=== PATIENT | female | born 1940 | race Caucasian/White ===

== ENCOUNTER → 2017-07-07 12:59 | Outpatient (CLI) | payer MEDICARE, SELFPAY ==
--- NOTE | 2017-07-07 13:02 | BI_ITS ---
MAMMOGRAPHY - BILATERAL SCREENING REASON FOR EXAM: Female, 76 years old. Routine annual screening examination. PERTINENT HISTORY: Personal history of breast cancer. Prior left lumpectomy. Aunt with breast cancer. TECHNIQUE: Digital bilateral breast mariel (3D mammographic acquisition) in the CC and MLO projections. 2-D mediolateral oblique (MLO) and craniocaudad (CC) views of both breasts were obtained. CAD: Full Field Digital Mammography with Computer Added Detection was performed. COMPARISON: Comparison is made with prior study dated June 26, 2016 and February 15, 2015. FINDINGS: Breast Composition: The breasts are almost entirely fatty. There are no dominant masses or suspicious calcifications. Once again, there is evidence of architectural distortion in the deep mid medial aspect of the left breast. This is in keeping with prior lumpectomy. A stereotactic clip is seen at that site as well. Stable 3.8 mm well-defined nodule in the superior retroareolar areolar region of the right breast. No other significant abnormalities are identified. There has been no significant change since the prior study. BI/SCREENING MAMM (CAD), BILAT IMPRESSION: Stable bilateral screening mammogram. Yearly follow-up mammogram recommended. (A) ASSESSMENT CATEGORY: BIRADS Category 2: Benign. A letter regarding these results will be sent to the patient by the facility within 30 days. Approximately 10% of breast cancers are not detected by mammography. A normal mammogram should not delay biopsy of a clinically suspicious abnormality. [id number] Electronically Signed: Amaury Sebastian MD at 15:25 EDT Tel [phone], Service support ,
== END ==
PROVIDERS: Visit Provider Internal Medicine Hematology & Oncology
DX: Z12.31 Encounter for screening mammogram for malignant neoplasm of breast (principal); Z85.6 Personal history of leukemia
CPT/HCPCS: 77063; 77067

== ENCOUNTER → 2017-08-12 17:23 | Outpatient (CLI) | payer MEDICARE, SELFPAY ==
--- NOTE | 2017-08-12 17:25 | CT_ITS ---
STUDY: CT SOFT TISSUE NECK WITH CONTRAST REASON FOR EXAM: Female, 76 years old. Right neck pain and lump. History of CLL and breast cancer. RADIATION DOSAGE (If Supplied By Facility): CTDIvol = ( 17.20 ) mGy, DLP = ( 536.83 ) mGycm TECHNIQUE: The patient was scanned in a multi-detector CT scanner. High resolution transaxial imaging was performed following intravenous administration of 75 ml of Isovue 370 contrast material. Sagittal and coronal images were reconstructed. Individualized dose optimization techniques were used for this CT. COMPARISON: None. FINDINGS: No definite focal mass is seen. Normal bilateral parotid glands. Normal bilateral uniform room attendant spaces. Normal bilateral parapharyngeal spaces. Normal bilateral carotid spaces. Normal bilateral sublingual and submandibular glands and spaces. Normal visualized nasopharynx. Normal retropharyngeal space. Normal perivertebral space. Normal visualized bilateral faucial tonsils. The visualized tongue, tongue base and oropharynx are normal. Mild bilateral posterior cervical time adenopathy right worse than left. There is an elongated 3.7 cm jugulodigastric lymph node on the right which could be the palpable abnormality. There is normal lymph node morphology. There is no demonstrated solid or cystic mass lesion. There is no abnormal contrast enhancement. Normal epiglottis, bilateral vallecula and hypopharynx. The pre-epiglottic and paraglottic adipose spaces are normal. Normal visualized bilateral piriform sinuses, aryepiglottic folds, vocal cords, and arytenoid-cricoid articulations. Normal subglottic trachea. Normal bilateral lobes of the thyroid gland. Abnormal left lung apex where there is a 2 cm indeterminate focal pulmonary density. CT of the chest is recommended. Normal visualized paranasal sinuses. Normal visualized cervical spine. CT/Soft Tissue Neck WITH Contrast IMPRESSION: No definite pathologic neck mass, but mild bilateral cervical adenopathy worse on the right which perhaps causes the palpable abnormality. 2 cm left apical pulmonary density. CT of the chest is recommended. Electronically Signed: Beny Eubanks MD at 11:33 EDT , Service support ,
[2017-08-12 17:35] LABS: CREATININE FINGERSTICK 1.1 mg/dL (0.55-1.02)
== END ==
PROVIDERS: Visit Provider Otolaryngology
DX: M54.2 Cervicalgia (principal)
CPT/HCPCS: 70491; Q9967

== ENCOUNTER → 2017-09-26 09:17 | Outpatient (CLI) | payer MEDICARE, SELFPAY ==
--- NOTE | 2017-09-26 09:19 | US_ITS ---
STUDY: ABDOMINAL ULTRASOUND - RIGHT UPPER QUADRANT REASON FOR VISIT: Female, 76 years old. Right upper quadrant pain . TECHNIQUE: Ultrasound evaluation of the right upper quadrant was performed with real-time and static lima-scale imaging. TECHNICAL QUALITY: Adequate. COMPARISON: None. FINDINGS: Liver: The liver measures 13.6 cm. There is normal echogenicity of the liver. The bile ducts are within normal limits. There is hepatic color flow. The direction of portal flow is hepatopetal. There is a 2 cm x 2.3 cm x 1.7 cm septated cyst in the left lobe of the liver. Gallbladder: Normal distended gallbladder. The gallbladder wall measures 3.0 mm. There is a negative sonographic Ge's sign. There is no pericholecystic fluid. There is a solitary echogenic gallstone within the gallbladder. Common Bile Duct (C.B.D.): The common bile duct measures 4.0 mm. Pancreas: Normal size of the head, body and tail of the pancreas. There is normal echogenicity of the pancreas. There is no demonstrated pancreatic mass or cyst. Right Kidney: Normal size of the right kidney. The right kidney measures 10.1 cm x 4.3 cm x 3.7 cm. Normal renal cortex. The right cortex measures 1.5 cm. There is no demonstrated renal mass or cyst. There is no right hydronephrosis. US/Gallbladder IMPRESSION: Solitary gallstone. Septated cyst in the left lobe of the liver. Electronically Signed: Amaury Sebastian MD at 13:19 EDT Tel [phone], Service support ,
== END ==
PROVIDERS: Visit Provider Surgery
DX: R10.11 Right upper quadrant pain (principal)
CPT/HCPCS: 76705

== ENCOUNTER 2017-10-10 06:20 | Day surgery (SDC) | payer MEDICARE, SELFPAY ==
[2017-10-10] VITALS (8 sets, daily range): BP systolic 98–130; BP diastolic 49–97; PULSE 66–82; RESP 14–16; TEMP 36.4–36.6; O2SAT 93–100; BMI 29.7
--- NOTE | 2017-10-10 | GASB_PTH ---
PATIENT: JOIE SANCHEZ LOC: EN U#:[id number] AGE/SX: 76/F ROOM: RE10/10/[address]: Dr. Bam Greco MD : 1940 BED: DIS: 10/10/2017 SPEC #: [id number] RECD: 10/10/17 13:50 STATUS: LINDA SHEYLA #: [id number] YAKELIN: 10/10/17 00:[address]: Bam Greco DEPT: SURGICAL PATHOLOGY RECD BY: Neal Coley ENTERED: 10/10/17 13:51 SP TYPE: Gastric Bx OTHR DR: No Primary Care Phys Tissues: A - Gastric mucous membrane B - Gastric mucous membrane C - Gastric mucous membrane D - Esophageal mucous membrane Procedures: Special Stain Group II Surgery Specimen Level IV Alcian Blue/PAS (control) HEADER OPERATION: EGD ([facility] [place]) PRE-OP DIAGNOSIS: GERD with esophagitis TISSUE SUBMITTED: A ? Antrum biopsy for H. pylori and path, B ? Gastric polyp biopsy, C ? GE junction biopsy, D ? Mid esophagus biopsy MICROSCOPIC DIAGNOSIS A. Antrum, biopsy: Mild gastritis. See microscopic description and comment. B. Gastric polyp, biopsy: Fundic gland polyp. C. GE junction, biopsy: Fragments of gastroesophageal mucosa with chronic inflammation. 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 See comment. D. Mid esophagus, biopsy: Fragment of squamous epithelium, no pathologic diagnosis. SJ:eladio 10/13/17 COMMENT A. The results of immunohistochemistry for Helicobacter pylori will be reported separately ([id number]). C. Alcian blue/PAS stain with matched control is used in the evaluation of the specimen. This case has been reviewed in consultation with Dr. Pierre who concurs with the above diagnosis. MICROSCOPIC DESCRIPTION Slides are reviewed. A. The specimen shows fragments of gastric mucosa with chronic inflammatory cell infiltrates in the lamina propria consisting of lymphocytes and plasma cells, consistent with mild chronic gastritis. GROSS DESCRIPTION A - Received in fixative is one container labeled with the patient's name and designated antrum biopsy for H. pylori and path. The specimen consists of one irregular fragment of light perdue soft tissue that measures 0.3 x 0.3 x 0.1 cm. The specimen is totally submitted in one cassette. B - Received in fixative is one container labeled with the patient's name and designated gastric polyp biopsy. The specimen consists of multiple irregular fragments of light perdue soft tissue that in aggregate measure 0.4 x 0.1 x 0.1 cm. The specimen is totally submitted in one cassette. C - Received in fixative is one container labeled with the patient's name and designated GE junction biopsy. The specimen consists of multiple irregular fragments of light perdue soft tissue that in aggregate measure 2 x 0.3 x 0.1 cm. The specimen is totally submitted in one cassette. D - Received in fixative is one container labeled with the patient's name and designated mid esophagus biopsy. The specimen consists of one irregular fragment of light perdue soft tissue that measures 0.5 x 0.2 x 0.1 cm. The specimen is totally submitted in one cassette. / SJ:rg 10/10/17 TC:3 CPT: 58624 x4, 38169
--- NOTE | 2017-10-10 | IMM_PTH ---
PATIENT: JOIE SANCHEZ LOC: EN U#:[id number] AGE/SX: 76/F ROOM: RE10/10/[address]: Dr. Bam Greco MD : 1940 BED: DIS: 10/10/2017 SPEC #: [id number] RECD: 10/13/17 11:52 STATUS: LINDA SHEYLA #: [id number] YAKELIN: 10/10/17 00:[address]: Bam Greco DEPT: IMMUNOHISTOCHEMISTRY RECD BY: Marialuisa Tobias ENTERED: 10/13/17 11:53 SP TYPE: IMMUNO OT DR: No Primary Care Phys Tissues: Gastric mucous membrane Procedures: H Pylori (initial) PHYSICIAN & INSTITUTION [place] [address] SPECIMEN INFORMATION: Tissue Source: A - Antrum biopsy Clinical Info: GERD with esophagitis Specimen Number: [id number] CPT code: 05656 METHODOLOGY: Deparaffinized sections of prefer/formalin-fixed tissue or PAP/DQ stained slides are incubated with monoclonal/polyclonal antibodies/oligonucleotide probes. Localization is made via biotin free immunoperoxidase method. Appropriate controls are performed and reacted as expected. Results on target cell population are indicated in the following table: RESULTS: ANTIBODY / CLONE RESULT H Pylori (polyclonal) negative These tests were developed and their performance characteristics determined by [facility]. They may not have been cleared or approved by the U.S. Food and Drug Administration. The FDA has determined that such clearance or approval is not necessary. INTERPRETATION: A. Antrum biopsy: Negative for Helicobacter pylori organisms. SJ:eladio 10/14/17
--- NOTE | 2017-10-10 08:01 | PCM.OPRPT ---
Problem List (1) GERD with esophagitis Status: Acute Report of Operation Date of Procedure: 10/10/17 Pre-Operative Diagnosis: Severe reflux esophagitis/GERD Post-Operative Diagnosis: Mild antral gastritis. Gastric fundic polyps. Hiatal hernia with reflux esophagitis and Schatzki ring Surgery/Procedure Performed:: Esophagogastroduodenoscopy with cold forcep biopsies Description of Surgical Findings:: Timeout informed consent was obtained. 76-year-old female was taken to the endoscopy suite. Her oropharynx anesthetized with Topex. She was placed in a left lateral decubitus position. She underwent monitored anesthesia care. Flexible gastroscope was inserted into the esophageal inlet. The proximal mid esophagus did not appear to be remarkable. The EG junction was at 38 cm. A 4 cm hiatal hernia noted. A Schatzki ring noted. Some mild erythema consistent with reflux. The scope stomach. Some mild erythema of the antrum noted. The scope was advanced through the pylorus. The first and second portions of the duodenum were inspected this was not remarkable. The scope was withdrawn back into the stomach and the antrum inspected. The mild erythema was sampled with cold forceps. The scope was retroflexed the hiatal hernia was noted the cardia was not remarkable. Upon straight on imaging there is evidence of gastric fundic polyps. No active bleeding. A cold forcep biopsy of 1 of the gastric fundic polyps was performed. Hemostasis was intact. The scope was withdrawn to the e.g. junction. Several biopsies were obtained of the esophageal ring and at the e.g. junction. Hemostasis again intact. The scope was withdrawn to the mid esophagus and mid esophageal biopsy was obtained. Excess fluid and air was aspirated free. The procedure was completed with the patient tolerating it well. Impression Antral erythema. Gastric fundic polyps. Moderate hiatal hernia with Schatzki ring and findings of reflux esophagitis. Pathology is pending She has undergone previous testing. She is a candidate for a surgical reflux procedure. In addition she has known gallstones. Patient will be offered consideration of a laparoscopic Joseph fundoplication with repair of her hiatal hernia in combination with a laparoscopic cholecystectomy. Scope was inserted 0749. The procedure was completed 0757. Bam Greco M.D., F.A.C.S. Type of Anesthesia:: MAC
== END 2017-10-10 08:50 | disposition home or self-care (01) ==
LOC: EN 06:21 → AC 06:22
PROVIDERS: Visit Provider Surgery
PROC: 0DJ08ZZ Inspection of Upper Intestinal Tract, Via Natural or Artificial Opening Endoscopic (ICD-10-PCS; CPT 43235; principal; 2017-10-10 07:40)
DX: K21.0 Gastro-esophageal reflux disease with esophagitis (principal); K29.70 Gastritis, unspecified, without bleeding; K44.9 Diaphragmatic hernia without obstruction or gangrene; K22.2 Esophageal obstruction; K31.7 Polyp of stomach and duodenum; C91.10 Chronic lymphocytic leukemia of B-cell type not having achieved remission; F41.9 Anxiety disorder, unspecified; F32.9 Major depressive disorder, single episode, unspecified; E78.00 Pure hypercholesterolemia, unspecified; E66.3 Overweight; Z68.30 Body mass index [BMI] 30.0-30.9, adult; Z86.73 Personal history of transient ischemic attack (TIA), and cerebral infarction without residual deficits; Z87.442 Personal history of urinary calculi; Z85.3 Personal history of malignant neoplasm of breast
CPT/HCPCS: 43239; 88305; 88313; 88342; J7120

== ENCOUNTER 2017-11-04 05:12 | Inpatient (IN) | payer MEDICARE, SELFPAY ==
[2017-10-28 11:15] VITALS: BP 121/86; PULSE 75; RESP 16; TEMP 36.7; O2SAT 100; BMI 29.9
[2017-10-28 12:16] LABS: Hematocrit 41.8 % (37-47); Hemoglobin 13.6 g/dl (12.0-15.0); Mean Corp Hgb Conc 32.5 g/gl (32-36); Mean Corpuscular Hgb 28.2 pg (27.0-32.0); Mean Corpuscular Volume 86.7 fL (81-99); Mean Platelet Vol. 9.9 fl (6.2-12.0); Platelet Count 153 K/mm3 (150-450); RBC Distribution Width CV 14.4 % (11.6-14.6); RBC Distribution Width SD 45.3 fl (35.1-43.9); Red Blood Count 4.82 M/mm3 (4.2-5.4); White Blood Count 29.4 K/mm3 (4.4-11.0)
[2017-10-28 12:20] LABS: Scan Indicated on CBC? Y/N NO
[2017-10-28 12:29] LABS: International Normalized Ratio 1.1; Prothrombin Time (Protime)PT. 13.8 SECONDS (11.7-14.9)
[2017-10-28 12:56] LABS: AST(SGOT) 16 U/L (15-37); Alanine Aminotransfer ALT/SGPT 20 U/L (13-56); Alkaline Phosphatase 64 U/L (45-117); Anion Gap 8 (5-15); BUN 17 mg/dL (7-18); BUN/Creat Ratio 16.7 RATIO (10-20); Bilirubin, Direct 0.17 mg/dL (0.00-0.30); Calcium,Total 8.6 mg/dL (8.5-10.1); Chloride 108 mmol/L (98-107); Creatinine, Serum 1.02 mg/dL (0.55-1.02); EST Glomerular Filtration Rate 56 mL/min (>60); Est Glom Filt Rate - Afr Amer 67 mL/min (>60); Estimated Creatinine Clearance 38.21 ml/min; Globulin 2.7 g/dL (2.2-4.2); Glucose 92 mg/dL (74-106); Potassium 4.2 mmol/L (3.5-5.1); Protein, Total 6.7 g/dL (6.4-8.2); Sodium Level 145 mmol/L (136-145); Thyroid Stim Hormone (TSH) 2.45 uIU/mL (0.358-3.74)
[2017-10-30 16:48] LABS: PTT-Lupus Anticoagulant 29.2 sec (0.0-51.9)
[2017-11-04] VITALS (13 sets, daily range): BP systolic 123–158; BP diastolic 66–86; PULSE 72–97; RESP 14–18; TEMP 36.1–36.9; O2SAT 93–100; BMI 29.9
--- NOTE | 2017-11-04 07:15 | GALL_PTH ---
PATIENT: JOIE SANCHEZ LOC: MS3 U#:[id number] AGE/SX: 76/F ROOM: MS312 RE11/04/[address]: Dr. Bam Greco MD : 1940 BED: 1 DIS: 11/05/2017 SPEC #: [id number] RECD: 11/04/17 12:28 STATUS: LINDA SHEYLA #: [id number] YAKELIN: 11/04/17 07:[address]: Bam Greco DEPT: SURGICAL PATHOLOGY RECD BY: Robel Irving ENTERED: 11/04/17 13:20 SP TYPE: KEVIN DIOR DR: Out of Town Doctor Tissues: Gallbladder, NOS Procedures: Surgery Specimen Level III HEADER OPERATION: Laparoscopic, Joseph fundoplication PRE-OP DIAGNOSIS: GERD with esophagitis TISSUE SUBMITTED: Gallbladder MICROSCOPIC DIAGNOSIS Gallbladder: Chronic cholecystitis and cholelithiasis. A pericystic lymph node with reactive changes. SJ:eladio 11/05/17 MICROSCOPIC DESCRIPTION Slides are reviewed. GROSS DESCRIPTION Received is one container labeled with the patient's name and designated gallbladder. The specimen consists of a gallbladder measuring 9 cm in length and 3 cm in diameter. The external surface is pink-perdue, smooth and glistening for the most part. Focally it is granular, hemorrhagic and contains cautery artifact. The gallbladder contains green-yellow mucoid bile and one ovoid, rough surfaced, uuljesrh-fxytggtl-kucaq stone measuring 2 x 1.5 x 1.5 cm. The mucosa is bile-stained and without any mass lesions. The gallbladder wall measures up to 0.2 cm in thickness. A focal area of gallbladder wall shows an increased amount of subserosal fat. An ovoid tissue, possible lymph node is also noted adjacent to the cystic duct area measuring 0.5 cm in greatest dimension. Quantitative [employer]st [employer] sections from the gallbladder, cystic duct and the entire lymph node are submitted in one cassette. / SHAILESH:eladio 11/04/17 TC:3 CPT: 90940
--- NOTE | 2017-11-04 07:15 | PCM.DC.GS ---
Discharge Diet: - - Liquid diet, any liquid which at body temperature will dissolve. This should be utilized for 2-3 days. You may then introduced soft pasta. Diet can be slowly advanced as tolerated. More difficult to swallow foods like beef and pork and bread should be delayed Discharge Activity: May Not Drive - for 1 week or while taking narcotic pain medicine., May Shower May shower in (days): 1 Lifting Restrictions: 10 pounds Call your doctor if your incision/area has: Continuous Slow Oozing, Sudden Increased Bleeding, Increased Pain/ Swelling, Increased Redness, Foul Smelling Discharge Call your doctor if you observe: Fever of 101 or Higher Suture Line Care: Avoid Pulling/Pushing, Avoid Pinching/Bending Additional Dressing/Incision Instructions:: Change or remove dressing in 3 days. Leave steri-strips in place for 1 week. Allergies/Adverse Reactions: Allergies No Known Allergies Allergy (Verified 10/28/17 13:02) Medications to take at Discharge esomeprazole magnesium 40 mg capsule,delayed release 40 mg PO BID cap 09/15/17 sertraline 100 mg tablet 100 mg PO QDAY 09/15/17 sodium chloride 0.65 % nasal spray aerosol 1 spray INTRANASAL Q1-4H PRN 09/15/17 Propylene Glycol/Peg 400/Pf [Systane 0.3-0.4% Eye Drops] 1 ea OP PRN PRN 10/06/17 Levothyroxine [Synthroid] 50 mcg PO DAILY 10/28/17 Hydrocodone Bitart/Apap 5-325 [Brodhead 5MG-325MG] 1 tablet PO Q6H PRN PRN 3 Days #8 tablet 11/04/17 The following prescriptions were given: Hydrocodone Bitart/Apap 5-325 [Brodhead 5MG-325MG] 1 tablet PO Q6H PRN PRN 3 Days #8 tablet PRN Reason: Pain Primary Care Physician: [facility] Doctor,Out of [Primary Care Provider] - Test Results: Test results from this visit will be discussed in further detail at your follow-up appointment, if applicable. Please Follow Up With: Bam Greco MD - [phone] When: Call to make an appointment to be seen in about 10 days.
[2017-11-04] MEDS: Cefazolin 2 GM in 0.9% Normal Saline 100 ML IV (07:16)
[2017-11-04] MEDS: Bupivacaine Mpf 0.5% 30 ML VIAL (08:00)
--- NOTE | 2017-11-04 11:00 | PCM.OPRPT ---
Problem List (1) GERD with esophagitis Status: Acute (2) Chronic cholecystitis with calculus Status: Acute Report of Operation Date of Procedure: 11/04/17 Pre-Operative Diagnosis: Intractable gastroesophageal reflux disease with findings suspicious for early Bradshaw's esophagus and Schatzki ring. Chronic cholecystitis cholelithiasis Post-Operative Diagnosis: Same Surgery/Procedure Performed:: Laparoscopic repair of hiatal hernia with laparoscopic Joseph fundoplication and laparoscopic cholecystectomy Description of Surgical Findings:: Timeout and informed consent was obtained. 76-year-old female was taken to the operating room. She was placed supine on the table. She underwent general endotracheal intubation anesthesia. Ancef 2 g are given intravenously preoperatively. The abdomen was sterilely prepped and draped. She was now in a low lithotomy position with careful buttock protection with rolled blankets or legs in the stirrups arms wrapped and protected. Abdomen was sterilely prepped and draped Ioban drape was used to help facilitate holding the drapes and placed. 0.5% Marcaine was used as a local anesthetic. The procedure total 30 cc was used. Skin sites were pre-anesthetized. Superior and slightly to the right of the umbilicus made a five-minute incision and using a 5 mm Visiport technology was able to gain direct access to the abdomen. Abdomen was insufflated CO2 to pressure of tenderness or pressure. 5 mm trocar was placed in the right mid abdomen later in the case I placed a 5 mm port in the right lateral abdomen. In addition a 10 mm port was placed placed in the left epigastrium and 2 additional 5 mm ports placed in the left upper quadrant lateral abdomen. The patient was placed in reverse Trendelenburg position. Immediately it became clear that there was significant amount of fibrofatty tissue obscuring the exact position of the stomach and the hiatal hernia tedious blunt and harmonic scalpel dissection was performed the hepatogastric ligament was incised it was noted that all vessels even small vessels had easy bleeding and the dissection had to be very slow and tedious. I then decided to gain access to the less ana I transected the gastrohepatic omentum using Harmonic there was fairly dense adhesions close to the spleen which I transected with harmonic then working both on the left than the right I was able to gradually elevate the and define the e.g. junction. The right ana was nicely identified the left ana did have some stripping of the epigastric peritoneum try to minimize that as much as possible and then better identifying the stomach which was densely adherent this area. I gradually and tediously was able to free that and then I worked in the mediastinum circumferentially staying clear of the posterior and anterior vagus nerves and getting circumferential dissection performed so as to mobilize the e.g. junction. Having achieved that I felt and having gotten a Hartley drain around the e.g. junction I felt that I had good length now of esophagus and stomach back into the abdomen. I carefully inspected felt that I had hemostasis. Was clearly able to see the diaphragmatic Hiatus. I utilized 0 Ethibond using Dacron carotid patch as pledgets. 4 separate sutures were used to approximate the crura felt that I had nice approximation. I then wrapped the fundus of the stomach. The apical suture included the fundus of the stomach the anterior wall of the esophagus the epiphrenic ligament and the right portion of the fundus. Secured that nicely. Suturing was performed using extracorporeal knot tying as well as intracorporeal additional not time. I placed 2 more sutures to complete the short floppy wrap assuring that I had also another securing stitch to the anterior wall of the stomach. [place] that I had very nice position wrap. Hemostasis was intact the site was irrigated aspirated. At this point I elected to proceed with a gallbladder that is when I added the additional lateral right lateral abdomen from the report. The gallbladder also had multiple adhesions of omentum to it these had to be tediously bluntly dissected free Harmonic Scalpel was used until finally I was able to identify the infundibulum blunt dissection then was able to identify the cystic artery and the cystic duct and I was able to dissect free the critical view. I placed 2 Hem-o-gabriella clips on the cystic artery proximally distally prior to transecting it. The cystic duct I had nicely skeletonized I placed 2 Hem-o-gabriella clips proximally 1 distally prior to transecting it. The gallbladder was then tediously dissected from the liver bed. The patient did have somewhat easy bleeding and that had to be then tediously controlled with electrocautery there was absolutely no bile spillage. Gallbladder was released placed in retrieval bag. The gallbladder bed was made hemostatic with cautery. This was further assisted with piece of john. Now fluid was insufflated in the abdomen. I then placed a flexible gastroscope down the esophagus. The EG junction was carefully inspected was noted be nicely intact there appeared to be easy positioning of the scope into the stomach I then retroflexed the scope and was able to see the wrapped area advanced the scope down to the lower part of the stomach hemostasis was intact and felt the wrap was good I insufflated air there was water inside the abdomen was absolutely no air leak. I then accessed aspirated free extra fluid and air. That scope was withdrawn the esophagus appeared to be healthy as well. The extra fluid in the abdomen was now aspirated free. I then removed the gallbladder through the 10 mm port site. That fascia was then closed using a 0 Vicryl and a grainy needle to create a figure 8 suture. The abdomen was allowed to deflate of CO2 as trochars were removed under visualization. Hemostasis was intact. The skin edges were approximated with multiple interrupted 4 Monocryl subdermal stitches. Steri-Strips Telfa and OpSite dressings applied. Sponge and instrument and needle counts were reported to the surgeon to be correct. Close to the end of the procedure it was made aware to me that one of the assistant professor of philosophy nurses had gone to a nonsterile down. She was present throughout the entire procedure holding a liver retractor. OR nurse coordinating contacted infectious disease who recommended extending antibiotic therapy. Specimens gallbladder. Drains none. Blood loss 50cc Bam Greco M.D., F.A.C.S. Type of Anesthesia:: General Anesthesiologist: Piyush Baez
[2017-11-04] MEDS: Morphine 2 MG/ML Syringe IV ×3 (13:36→19:04)
[2017-11-04] MEDS: Ondansetron 4 MG/2 ML Vial IV (13:48)
[2017-11-04] MEDS: Cefazolin 1 GM/50 ML BAG IV ×2 (15:39→23:06)
[2017-11-04] MEDS: Morphine 4 MG/ML Syringe IV ×2 (20:32→23:06)
[2017-11-05] MEDS: Lactated Ringers 1,000 ML 50 ML IV (00:29)
[2017-11-05] MEDS: Morphine 4 MG/ML Syringe IV (03:24)
[2017-11-05 05:20] VITALS: BP 125/65; PULSE 81; RESP 18; TEMP 36.9; O2SAT 95
--- NOTE | 2017-11-05 06:15 | PCM.PN.SRG ---
Patient Problems: Active and Suspected Problems (Last Reviewed 10/28/17 @ 13:01 by Marcie Domínguez) Chronic cholecystitis with calculus (Acute) Subjective: Pt feeling much better, less sore in abdomen - Physical Exam General: Alert, Oriented x3, Cooperative, No apparent distress Lungs: Clear to auscultation Abdomen: Soft, Hypoactive Bowel Sounds, - - mildly diffusely tender ecchymosis at left epigastric incision Vital Signs Temp Pulse Resp BP Pulse Ox 98.2 F 76 18 134/72 H 95 11/04/17 23:20 11/04/17 23:20 11/04/17 23:20 11/04/17 23:20 11/04/17 23:34 Oxygen Flow Rate (L/min) 2 Oxygen Delivery Method Room Air Weight: 169 lb 1.513 oz Body Mass Index (BMI) 29.9 Intake and Output for Last 24 Hours 11/03/17 11/04/17 11/05/17 23:59 23:59 23:59 Intake Total 2634 / 2634 Output Total 1200 / 1200 Balance 1434 / 1434 Medical Necessity - Tobacco Use Smoking Status: Never smoker Assessment/Plan All Active Problems (Last Reviewed 10/28/17 @ 13:01 by Marcie Domínguez) Chronic cholecystitis with calculus (Acute) GERD with esophagitis (Acute) Modified full liquids Discharge
[2017-11-05] MEDS: Levothyroxine 50 MCG Tablet PO (06:25)
[2017-11-05] MEDS: Morphine 2 MG/ML Syringe IV (07:05)
[2017-11-05 07:55] VITALS: BP 107/64; PULSE 90; RESP 18; TEMP 36.6; O2SAT 96
[2017-11-05] MEDS: Pantoprazole Sodium 40 MG Tablet PO (10:42)
[2017-11-05] MEDS: Sertraline 100 MG Tablet PO (10:43)
[2017-11-05] MEDS: HYDROcodone Bitartrate/Apap 5/325 Tablet PO ×2 (10:43→13:51)
--- NOTE | 2017-11-05 11:10 | CASEMGMT ---
RN STEF Face to Face with patient for initial transition planning/care coordination assessment. RN CM introduced self and role at [facility]. Patient sitting in chair, alert and oriented. Patient willing to participate in assessment and is able to answer all questions appropriately. Care providers, pharmacy, and demographics verified. Patient lives in 1 story home with with 2 step to enter the home. Patient denies need for DME. Patient wishes to discharge home, denies need for home health at this time. Patient states he has no further needs or concerns at this time. CM to follow for discharge planning needs that may arise. Disposition Plan: Patient to discharge home with family support and follow-up plan in place.
[2017-11-05 12:12] VITALS: BP 110/61; PULSE 86; RESP 18; TEMP 36.7; O2SAT 94
== END 2017-11-05 14:12 | disposition home or self-care (01) | DRG 418 ==
LOC: ACINP 11:46 → MS3 11:47
PROVIDERS: Anesthesiology; Admitting Provider Surgery; Visit Provider Surgery
PROC: 0BQT4ZZ Repair Diaphragm, Percutaneous Endoscopic Approach (ICD-10-PCS; CPT 43325; principal; 2017-11-04 06:55)
PROC: 0BQT4ZZ Repair Diaphragm, Percutaneous Endoscopic Approach (ICD-10-PCS; CPT 47610; 2017-11-04 06:55)
DX: K80.10 Calculus of gallbladder with chronic cholecystitis without obstruction (principal); C91.10 Chronic lymphocytic leukemia of B-cell type not having achieved remission; K21.0 Gastro-esophageal reflux disease with esophagitis; F41.9 Anxiety disorder, unspecified; F32.9 Major depressive disorder, single episode, unspecified; K44.9 Diaphragmatic hernia without obstruction or gangrene; Z86.73 Personal history of transient ischemic attack (TIA), and cerebral infarction without residual deficits; Z85.3 Personal history of malignant neoplasm of breast; Z87.440 Personal history of urinary (tract) infections; Z87.442 Personal history of urinary calculi; Z79.899 Other long term (current) drug therapy
CPT/HCPCS: 80048; 80076; 84443; 85027; 85610; 85732; 88304; 93005; J7120; C1768; J2405

== ENCOUNTER → 2018-05-29 08:06 | Outpatient (CLI) | payer MEDICARE, SELFPAY ==
[2018-05-19 13:34] VITALS: BMI 29.9
--- NOTE | 2018-05-29 08:32 | RAD_ITS ---
STUDY: AIR-CONTRAST UPPER GI SERIES AND SMALL BOWEL FOLLOW-THROUGH EXAMINATION. REASON FOR EXAM: Female, 77 years old. Left upper quadrant pain. Chronic diarrhea. Remote Joseph fundoplication. FLUOROSCOPY TIME (if supplied): (0:45) minutes/seconds. 26 images were obtained. TECHNIQUE: The patient ingested barium. Multiple images of the esophagus stomach and duodenum were obtained. Following this, a small bowel follow-through examination was performed. COMPARISON: None. FINDINGS: There is no evidence of esophageal obstruction. No mass lesion is seen. There is no evidence of gastroesophageal reflux. There is evidence of postoperative changes at the gastroesophageal junction secondary to the Niesen fundoplication. The remainder of the stomach and duodenum is unremarkable. There is no evidence of mass lesion. No evidence of ulceration. A small bowel follow-through examination was then obtained. The small bowel transit is normal. There is no evidence of intrinsic or extrinsic small bowel disease. RAD/Upper GI/w Small Bowel IMPRESSION: Unremarkable air contrast upper GI series and small bowel follow-through examination. Electronically Signed: Amaury Sebastian, at 8:28 EST , Service support ,
== END ==
PROVIDERS: Referring Provider Physician Assistant; Visit Provider Physician Assistant
DX: R10.12 Left upper quadrant pain (principal); Z87.19 Personal history of other diseases of the digestive system
CPT/HCPCS: 74249

== ENCOUNTER → 2018-08-04 | Outpatient (CLI) | payer MEDICARE, SELFPAY ==
[2018-05-19 13:34] VITALS: BMI 29.9
--- NOTE | 2018-08-04 13:32 | BI_ITS ---
MAMMOGRAPHY - BILATERAL SCREENING REASON FOR EXAM: Female, 77 years old. Routine annual screening examination. PERTINENT HISTORY: Personal history of breast cancer. Prior left lumpectomy. Remote right excisional breast biopsy. TECHNIQUE: Digital bilateral breast mariel (3D mammographic acquisition) in the CC and MLO projections. 2-D mediolateral oblique (MLO) and craniocaudad (CC) views of both breasts were obtained. CAD: Full Field Digital Mammography with Computer Added Detection was performed. COMPARISON: Comparison is made with prior examination dated July 07, 2017 and June 26, 2016 FINDINGS: Breast Composition: The breasts are almost entirely fatty. The patient is status post lumpectomy in the deep central medial aspect of the left breast with overlying postoperative scarring and skin thickening. A tissue clip marker is seen at that site as well. The previously seen 3.8 mm well-defined nodule in the superior medial retroareolar region of the right breast is not seen at this time. No other significant abnormalities are identified. There has been no significant change since the prior study. BI/SCREENING MAMM (CAD), BILAT IMPRESSION: Stable bilateral screening mammogram. Yearly follow-up mammogram recommended. (A) ASSESSMENT CATEGORY: BIRADS Category 2: Benign. A letter regarding these results will be sent to the patient by the facility within 30 days. Approximately 10% of breast cancers are not detected by mammography. A normal mammogram should not delay biopsy of a clinically suspicious abnormality. [id number] Electronically Signed: Amaury Sebastian, at 10:36 EDT , Service support ,
== END | disposition home or self-care (01) ==
PROVIDERS: Referring Provider Internal Medicine Hematology & Oncology; Visit Provider Internal Medicine Hematology & Oncology
DX: Z12.31 Encounter for screening mammogram for malignant neoplasm of breast (principal); D05.12 Intraductal carcinoma in situ of left breast
CPT/HCPCS: 77063; 77067

== ENCOUNTER → 2019-08-09 | Outpatient (CLI) | payer MEDICARE, SELFPAY ==
[2018-05-19 13:34] VITALS: BMI 29.9
--- NOTE | 2019-08-09 12:50 | BI_ITS ---
MAMMOGRAPHY - BILATERAL SCREENING REASON FOR EXAM: Female, 78 years old. Routine annual screening examination. PERTINENT HISTORY: Personal history of breast cancer. Prior left lumpectomy. Aunt with breast cancer. Remote right excisional breast biopsy. TECHNIQUE: Digital bilateral breast mery (3D mammographic acquisition) in the CC and MLO projections. 2-D mediolateral oblique (MLO) and craniocaudad (CC) views of both breasts were obtained. CAD: Full Field Digital Mammography with Computer Added Detection was performed. COMPARISON: Comparison is made with prior examination dated August 04, 2018 and July 07, 2017. FINDINGS: Breast Composition: The breasts are almost entirely fatty. There are no dominant masses or suspicious calcifications. Stable focal area of architectural distortion in the deep posterior medial aspect of the left breast. This is in keeping with her prior lumpectomy. No other significant abnormalities are identified. There has been no significant change since the prior study. BI/SCREEN MAMM (CAD) W/MERY BILAT IMPRESSION: Stable bilateral screening mammogram. Yearly follow-up mammogram recommended. (A) ASSESSMENT CATEGORY: BIRADS Category 2: Benign. A letter regarding these results will be sent to the patient by the facility within 30 days. Approximately 10% of breast cancers are not detected by mammography. A normal mammogram should not delay biopsy of a clinically suspicious abnormality. [id number] Electronically Signed: Amaury Sebastian, at 13:52 EDT , Service support ,
== END | disposition home or self-care (01) ==
LOC: OPBI 12:51
PROVIDERS: PCP Radiologic Technologist Bone Densitometry; Referring Provider Internal Medicine Hematology & Oncology; Visit Provider Internal Medicine Hematology & Oncology
DX: Z12.31 Encounter for screening mammogram for malignant neoplasm of breast (principal); C91.10 Chronic lymphocytic leukemia of B-cell type not having achieved remission
CPT/HCPCS: 77063; 77067

== ENCOUNTER → 2020-08-14 10:41 | Outpatient (CLI) | payer MEDICARE, SELFPAY ==
[2018-05-19 13:34] VITALS: BMI 29.9
--- NOTE | 2020-08-14 10:44 | BI_ITS ---
MAMMOGRAPHY - BILATERAL SCREENING 3-D TOMOSYNTHESIS REASON FOR EXAM: Female, 79 years old. Routine screening PERTINENT HISTORY: Personal history of breast cancer with previous lumpectomy.. TECHNIQUE: 2-D mammograms and 3-D Tomosynthesis of the breast (s) were performed. CAD was performed. COMPARISON: 08/09/2019 FINDINGS: The breast composition is composed of scattered fibroglandular density. Scattered benign calcifications are seen. No dense spiculated masses or suspicious microcalcifications are identified. Stable architectural distortion in the left breast from previous biopsy/lumpectomy. There is no skin thickening or retraction. There has been no significant change since the prior study. BI/SCRN MAMM (CAD)W/MERY BILAT IMPRESSION: No mammographic signs of malignancy. Routine yearly mammograms recommended. ASSESSMENT CATEGORY: BIRADS Category 2: Benign. A letter regarding these results will be sent to the patient by the facility within 30 days. FOLLOW UP RECOMMENDATION: Yearly follow up mammogram recommended. (A) Approximately 10% of breast cancers are not detected by mammography. A normal mammogram should not delay biopsy of a clinically suspicious abnormality. Electronically Signed: Tramaine Falcon MD at 12:07 EDT , Service support ,
== END ==
PROVIDERS: PCP Radiologic Technologist Bone Densitometry; Referring Provider Internal Medicine Hematology & Oncology; Visit Provider Internal Medicine Hematology & Oncology
DX: Z12.31 Encounter for screening mammogram for malignant neoplasm of breast (principal); D05.12 Intraductal carcinoma in situ of left breast; C91.10 Chronic lymphocytic leukemia of B-cell type not having achieved remission
CPT/HCPCS: 77063; 77067

== ENCOUNTER → 2021-08-22 | Outpatient (CLI) | payer MEDICARE, SELFPAY ==
--- NOTE | 2021-08-22 09:41 | BI_ITS ---
MAMMOGRAPHY - BILATERAL SCREENING REASON FOR EXAM: Female, 80 years old. Routine annual screening examination. PERTINENT HISTORY: Personal history of breast cancer with prior left lumpectomy in 2003 with estrogen inhibitor therapy. Remote history right excisional biopsy in 1968. Positive family history in maternal aunt. TECHNIQUE: Digital bilateral breast mery (3D mammographic acquisition) in the CC and MLO projections. 2-D mediolateral oblique (MLO) and craniocaudad (CC) views of both breasts were obtained. CAD: Full Field Digital Mammography with Computer Added Detection was performed. COMPARISON: Screening mammogram from 08/14/2020, 08/09/2019, 08/04/2018, 07/07/2017. FINDINGS: Breast Composition: There are scattered areas of fibroglandular density. There are no dominant masses or suspicious calcifications. Stable area of architectural distortion, biopsy clip marker, and surgical clips in the left lower inner breast associated with prior lumpectomy. No other significant abnormalities are identified. There has been no significant change since the prior study. BI/SCRN MAMM (CAD)W/MERY BILAT IMPRESSION: Stable bilateral screening mammogram. Yearly follow-up mammogram recommended. (A) ASSESSMENT CATEGORY: BIRADS Category 2: Benign. A letter regarding these results will be sent to the patient by the facility within 30 days. Approximately 10% of breast cancers are not detected by mammography. A normal mammogram should not delay biopsy of a clinically suspicious abnormality. [id number] Electronically Signed: Mauricio Patterson, at 18:06 EDT ,
== END | disposition home or self-care (01) ==
LOC: OPBI 09:40
PROVIDERS: PCP Radiologic Technologist Bone Densitometry; Referring Provider Internal Medicine Hematology & Oncology; Visit Provider Internal Medicine Hematology & Oncology
DX: Z12.31 Encounter for screening mammogram for malignant neoplasm of breast (principal); Z85.3 Personal history of malignant neoplasm of breast
CPT/HCPCS: 77063; 77067

== ENCOUNTER → 2022-08-23 | Outpatient (CLI) | payer MEDICARE, SELFPAY ==
--- NOTE | 2022-08-23 11:58 | BI_ITS ---
MAMMOGRAPHY - BILATERAL SCREENING REASON FOR EXAM: Female, 81 years old. Routine annual screening examination. PERTINENT HISTORY: Personal history of breast cancer. Prior left lumpectomy. Aunt with breast cancer. TECHNIQUE: Digital bilateral breast mery (3D mammographic acquisition) in the CC and MLO projections. 2-D mediolateral oblique (MLO) and craniocaudad (CC) views of both breasts were obtained. CAD: Full Field Digital Mammography with Computer Added Detection was performed. COMPARISON: Comparison is made with prior examination of August 22, 2021 and August 14, 2020. FINDINGS: Breast Composition: The breasts are almost entirely fatty. There are no dominant masses or suspicious calcifications. The patient is status post lumpectomy in the deep inferior medial aspect of the left breast. Postoperative changes are stable. No other significant abnormalities are identified. There has been no significant change since the prior study. BI/SCRN MAMM (CAD)W/MERY BILAT IMPRESSION: Stable bilateral screening mammogram. Yearly follow-up mammogram recommended. (A) ASSESSMENT CATEGORY: BIRADS Category 2: Benign. A letter regarding these results will be sent to the patient by the facility within 30 days. Approximately 10% of breast cancers are not detected by mammography. A normal mammogram should not delay biopsy of a clinically suspicious abnormality. [id number] Electronically Signed: Amaury Sebastian MD at 12:51 EDT ,
== END | disposition home or self-care (01) ==
PROVIDERS: PCP Radiologic Technologist Bone Densitometry; Referring Provider Radiologic Technologist Bone Densitometry; Visit Provider Radiologic Technologist Bone Densitometry
DX: Z12.31 Encounter for screening mammogram for malignant neoplasm of breast (principal)
CPT/HCPCS: 77063; 77067

== ENCOUNTER → 2023-11-06 | Outpatient (CLI) | payer MEDICARE, SELFPAY ==
--- NOTE | 2023-11-06 10:50 | BI_ITS ---
MAMMOGRAPHY - BILATERAL SCREENING 3-D TOMOSYNTHESIS REASON FOR EXAM: Female, 82 years old. SCREENING PERTINENT HISTORY: No significant family history. TECHNIQUE: 2-D mammograms and 3-D Tomosynthesis of the breast (s) were performed. CAD was performed. COMPARISON: 08/23/2022 FINDINGS: The breast composition is composed of scattered fibroglandular density. Scattered benign calcifications are seen. No dense spiculated masses or suspicious microcalcifications are identified. No architectural distortion is identified. There is no skin thickening or retraction. There has been no significant change since the prior study. No change in the lumpectomy changes and scarring in the lower inner quadrant of the left breast. BI/SCRN MAMM (CAD)W/MERY BILAT IMPRESSION: No mammographic signs of malignancy. Routine yearly mammograms recommended. ASSESSMENT CATEGORY: BIRADS Category 2: Benign. A letter regarding these results will be sent to the patient by the facility within 30 days. FOLLOW UP RECOMMENDATION: Yearly follow up mammogram recommended. (A) Approximately 10% of breast cancers are not detected by mammography. A normal mammogram should not delay biopsy of a clinically suspicious abnormality. Electronically Signed: Dino Ulloa MD at 13:13 EDT ,
== END | disposition home or self-care (01) ==
LOC: OPBI 10:48
PROVIDERS: PCP Radiologic Technologist Bone Densitometry; Referring Provider Specialist; Visit Provider Specialist
DX: Z12.31 Encounter for screening mammogram for malignant neoplasm of breast (principal)
CPT/HCPCS: 77063; 77067

== ENCOUNTER → 2024-11-08 | Outpatient (CLI) | payer MEDICARE, SELFPAY ==
--- NOTE | 2024-11-08 11:49 | BI_ITS ---
EXAM: SCRN MAMM (CAD)W/MERY BILAT DATE: 11/08/2024 CLINICAL HISTORY: F, Age 83 y/o , SCREENING TECHNIQUE: SCRN MAMM (CAD)W/MERY BILAT COMPARISON: Prior exam(s) WERE COMPARED FINDINGS: TISSUE DENSITY: There are scattered areas of fibroglandular density. Bilateral Breast Mammographic Findings: No suspicious masses, calcifications or other abnormalities are identified. BI/SCRN MAMM (CAD)W/MERY BILAT IMPRESSION: No mammographic evidence of malignancy in either breast OVERALL FINAL ASSESSMENT BI-RADS 1: NEGATIVE. RECOMMENDATION: Routine annual follow-up in 1 Year A letter with findings and recommendations will be mailed to the patient. Reading Location: [id number]
--- NOTE | 2024-11-08 11:49 | BI_ITS ---
EXAM: SCRN MAMM (CAD)W/MERY BILAT DATE: 11/08/2024 CLINICAL HISTORY: F, Age 83 y/o , SCREENING TECHNIQUE: SCRN MAMM (CAD)W/MERY BILAT COMPARISON: Prior exam(s) WERE COMPARED FINDINGS: TISSUE DENSITY: There are scattered areas of fibroglandular density. Bilateral Breast Mammographic Findings: No suspicious masses, calcifications or other abnormalities are identified. BI/SCRN MAMM (CAD)W/MERY BILAT IMPRESSION: No mammographic evidence of malignancy in either breast OVERALL FINAL ASSESSMENT BI-RADS 1: NEGATIVE. RECOMMENDATION: Routine annual follow-up in 1 Year A letter with findings and recommendations will be mailed to the patient. Reading Location: [id number]
== END | disposition home or self-care (01) ==
LOC: OPBI 11:45
PROVIDERS: PCP Radiologic Technologist Bone Densitometry
DX: Z12.31 Encounter for screening mammogram for malignant neoplasm of breast (principal)
CPT/HCPCS: 77063; 77067